=== PATIENT | male | born 1960 | race Caucasian/White ===

== ENCOUNTER 2019-09-08 20:25 | Emergency (ER) | payer MEDICARE, MEDICAID ==
[~2019-09-08] VITALS: Ht 182.9 cm; Wt 115.9 kg
[2019-09-08 20:37] VITALS: BP 160/85
== END 2019-09-08 22:43 | disposition home or self-care (01) ==
LOC: ER 20:27
DX: J02.9 Acute pharyngitis, unspecified (principal)
CPT/HCPCS: 87081; 87880; 99283

== ENCOUNTER 2022-04-19 00:31 | Emergency (ER) | payer MEDICARE, MEDICAID ==
[~2022-04-19] VITALS: Ht 182.9 cm; Wt 124.5 kg
[2022-04-19] MEDS ORDERED: TETanus/Pertussis (Acell)/Diphther VAC/PF (Tdap-Adult) 0.5ml syringe IMVAC ONE (02:45)
[2022-04-19] MEDS ORDERED: NAPR-56 PO (03:17)
[2022-04-19] MEDS ORDERED: HYDROcodone/acetaminophen 5mg/325mg tablet PO ONE (03:20)
[2022-04-19] MEDS ORDERED: naproxen 500mg tablet PO ONE (03:20)
[2022-04-19 04:01] VITALS: BP 150/90
== END 2022-04-19 04:03 | disposition home or self-care (01) ==
LOC: ER 00:32
DX: S62.617A Displaced fracture of proximal phalanx of left little finger, initial encounter for closed fracture (principal); V00.841A Fall from standing electric scooter, initial encounter; Y93.89 Activity, other specified; Y92.89 Other specified places as the place of occurrence of the external cause; Y99.8 Other external cause status
CPT/HCPCS: 29130; 73140; 90471; 90715; 99284